=== PATIENT | female | born 1980 | race African-American/Black ===

== ENCOUNTER 2017-02-12 09:50 | Emergency (ER) | payer OTHER ==
[2017-02-12 11:18] LABS: INR 1.13 (0.9-1.2); PROTHROMBIN TIME 14.1 SECONDS (11.7-14.0)
== END 2017-02-12 13:18 | disposition home or self-care (01) ==
LOC: FER 09:50
PROVIDERS: Nurse Practitioner
DX: I82.402 Acute embolism and thrombosis of unspecified deep veins of left lower extremity (principal); F17.210 Nicotine dependence, cigarettes, uncomplicated; Z88.2 Allergy status to sulfonamides
CPT/HCPCS: 36415; 85379; 85610; 85730; 93971

== ENCOUNTER → 2021-02-27 | Day surgery (SDC) | payer OTHER ==
[~2021-02-27] VITALS: Ht 180.3 cm; Wt 130.6 kg
[~2021-02-27] MED LIST: BACLOFEN 20MG T20 MG PO; CEFDINIR300 MG PO; CYMBALTA20 MG PO; FLEXERIL5 MG PO; IBUPROFEN800 MG PO; MOTRIN600 MG PO; MUCINEX 600MG600 MG PO; NAPROXEN500 MG PO; NICOTINE PATCH1 EAC2 EXT; NIFEREX150 MG PO; NORCO 5-325 TA1 EACH PO; PERCOCET 5-3251 EACH PO; SINEQUAN25 MG PO; SKELAXIN800 MG PO; VALSARTAN-HCTZ1 EAC4 PO; VOLTAREN **OUT75 MG PO; WELLBUTRIN75 MG PO; XARELTO15 MG PO; XARELTO20 MG PO; ZOLOFT50 M1 PO
[2021-02-27 08:23] LABS: HCG (URINE) SCREEN NEGATIVE (NEGATIVE)
[2021-02-27 08:53] LABS: BASOPHIL 0.4 % (0-2); EOSINOPHIL 1.4 % (0-5); HCT 38.7 % (37.0-47.0); HGB 12.3 g/dl (12.5-16.0); LYMPHOCYTE 25.4 % (15-48); MCH 26.9 pg (25.0-31.0); MCHC 31.8 g/dL (32.0-36.0); MCV 84.7 fL (78.0-100.0); MPV 9.8 fL (6.0-9.5); NEUTROPHIL 68.6 % (41-80); NRBC 0; PLT 249 K/uL (150-400); RBC 4.57 M/uL (4.20-5.40); RDW 15.8 % (11.5-14.0); WBC 5.7 K/uL (4.0-10.5)
[2021-02-27 08:55] LABS: BUN/CREAT RATIO (CALC) 15.5 RATIO; CREATININE 0.58 mg/dL (0.51-0.95); POTASSIUM 3.8 mmol/L (3.5-5.1)
== END | disposition home or self-care (01) ==
LOC: FAS 07:58
PROVIDERS: Obstetrics & Gynecology
DX: N70.11 Chronic salpingitis (principal); N83.02 Follicular cyst of left ovary; N83.12 Corpus luteum cyst of left ovary; F41.9 Anxiety disorder, unspecified; R94.31 Abnormal electrocardiogram [ECG] [EKG]; F32.9 Major depressive disorder, single episode, unspecified; I82.409 Acute embolism and thrombosis of unspecified deep veins of unspecified lower extremity; I10 Essential (primary) hypertension; D68.59 Other primary thrombophilia; Z79.01 Long term (current) use of anticoagulants; Z80.41 Family history of malignant neoplasm of ovary; Z88.1 Allergy status to other antibiotic agents; F17.210 Nicotine dependence, cigarettes, uncomplicated
CPT/HCPCS: 36415; 80048; 84703; 85025; 86850; 86900; 86901; 93005; J1170; J1650; J1885; J2250; J2270; J2405; J2704; J2710; J3010; J3490; J7120

== ENCOUNTER 2021-07-18 21:50 | Emergency (ER) | payer OTHER ==
[2021-07-19] MEDS ORDERED: PERCOCET 5-3251 EACH PO (02:04)
[2021-07-19] MEDS ORDERED: CLEOCIN300 MG PO (02:04)
== END 2021-07-19 02:16 | disposition home or self-care (01) ==
LOC: FER 21:50
DX: I83.013 Varicose veins of right lower extremity with ulcer of ankle (principal); L97.319 Non-pressure chronic ulcer of right ankle with unspecified severity; F17.210 Nicotine dependence, cigarettes, uncomplicated; Z88.2 Allergy status to sulfonamides; Z88.1 Allergy status to other antibiotic agents
CPT/HCPCS: 96372; 99283; J1170; J1885

== ENCOUNTER 2021-10-18 14:25 | Emergency (ER) | payer OTHER ==
[~2021-10-18 14:25] MED LIST changes: +CLEOCIN300 MG PO
[2021-10-18 15:49] LABS: BASOPHIL 0.5 % (0-2); EOSINOPHIL 2.1 % (0-5); HCT 36.5 % (37.0-47.0); HGB 11.6 g/dl (12.5-16.0); LYMPHOCYTE 35.6 % (15-48); MCHC 31.8 g/dL (32.0-36.0); MCV 85.1 fL (78.0-100.0); MONOCYTE 3.9 % (0-12); MPV 8.9 fL (6.0-9.5); NEUTROPHIL 57.4 % (41-80); NRBC 0; PLT 223 K/uL (150-400); RBC 4.29 M/uL (4.20-5.40); RDW 16.8 % (11.5-14.0); WBC 4.4 K/uL (4.0-10.5)
[2021-10-18 16:08] LABS: BUN/CREAT RATIO (CALC) 21.2 RATIO; CREATININE 0.52 mg/dL (0.51-0.95); POTASSIUM 4.2 mmol/L (3.5-5.1)
[2021-10-18 16:09] LABS: BILIRUBIN NEGATIVE (NEGATIVE); BLOOD NEGATIVE Ery/uL (NEGATIVE); CLARITY CLEAR (CLEAR); COLOR YELLOW (YELLOW); GLUCOSE (U) NORMAL (NORMAL); LEUKOCYTES NEGATIVE Leu/uL (NEGATIVE); NITRITE NEGATIVE (NEGATIVE); PROTEIN NEGATIVE (NEGATIVE); SPECIFIC GRAVITY 1.015 (1.001-1.030)
[2021-10-18] MEDS ORDERED: CLEOCIN300 MG PO (18:04)
== END 2021-10-18 18:45 | disposition home or self-care (01) ==
LOC: FER 14:25
PROVIDERS: Nurse Practitioner Family
DX: S81.801A Unspecified open wound, right lower leg, initial encounter (principal); L03.115 Cellulitis of right lower limb; U07.1 COVID-19; F17.210 Nicotine dependence, cigarettes, uncomplicated; Z88.1 Allergy status to other antibiotic agents
CPT/HCPCS: 36415; 80048; 81003; 84145; 85025; 85379; 87040; 87070; 87077; 87186; 87205; 93971; U0002